=== PATIENT | female | born 1965 | race Caucasian/White ===

== ENCOUNTER 2018-06-03 19:51 | Emergency (ER) | payer BC, OTHER ==
--- NOTE | 2018-06-03 19:57 | ER Document Report ---
ED General - General Stated Complaint: POSSIBLE SYNCOPE EPISODE Time Seen by Provider: 06/03/18 19:56 Mode of Arrival: Medic Information source: Patient Notes: 52-year-old female with chronic back pain on Suboxone presents via EMS after a possible syncopal episode. Patient reports that she took a "piece" of Suboxone , 2 shots of rum and smoked marijuana earlier today. She states that she was outside of the liquor store when she became nauseous, dizzy and began vomiting. Her friend returned to the car and reports that the patient was unresponsive and cyanotic. EMS reports that upon their arrival the patient was alert, awake and not vomiting. Currently patient is complaining of dizziness. She denies any headache blurred vision, nausea, vomiting, chest pain, shortness of breath. Patient states that she recently started Suboxone after being on Percocet for many years for her chronic back pain. - HPI Onset: Just prior to arrival Onset/Duration: Sudden Quality of pain: No pain Associated symptoms: Nausea, Vomiting Exacerbated by: Denies Relieved by: Denies Similar symptoms previously: No Recently seen / treated by doctor: No - Related Data Allergies/Adverse Reactions: No Known Allergies Allergy (Verified 06/03/18 20:29) Past Medical History - General Information source: Patient, Friend, Emergency Med Personnel, [facility] Records - Social History Smoking Status: Current Every Day Smoker Cigarette use (# per day): Yes - 10 Smoking Education Provided: Yes Frequency of alcohol use: Occasional Drug Abuse: Marijuana, Other - Suboxone Lives with: Family Family History: Reviewed & Not Pertinent Patient has suicidal ideation: No Patient has homicidal ideation: No - Medical History Medical History: Other - Chronic back pain Review of Systems - Review of Systems Notes: REVIEW OF SYSTEMS: CONSTITUTIONAL : Denies fever, chills, or sweats. Denies recent illness. Denies weight loss, recent hospitalizations. EENT: Denies visual changes, eye pain. Denies nasal or sinus congestion or discharge. Denies sore throat, oral lesions, difficulty swallowing. CARDIOVASCULAR: Denies chest pain. Denies palpitations. Denies lower extremity edema. RESPIRATORY: Denies cough, cold, or chest congestion. Denies wheezing. GASTROINTESTINAL: Denies abdominal pain or distention. Denies diarrhea. Denies blood in vomitus, stools, or per rectum. Denies black, tarry stools. Denies constipation. GENITOURINARY: Denies difficulty urinating, painful urination, frequency, blood in urine, or vaginal discharge. MUSCULOSKELETAL: Denies back or neck pain or stiffness. Denies joint pain or swelling. SKIN: Denies rash, lesions or sores. HEMATOLOGIC : Denies easy bruising or bleeding. LYMPHATIC: Denies swollen glands. NEUROLOGICAL: Denies confusion or altered mental status. Denies passing out or loss of consciousness. Denies headache. Denies weakness or paralysis. Denies problems difficulty with ambulation, slurred speech. Denies sensory loss , numbness, or tingling. Denies seizures. PSYCHIATRIC: Denies anxiety or stress. Denies depression, suicidal ideation, or homicidal ideation. Denies visual or auditory hallucinations. Physical Exam - Vital signs Vitals: Temp 98.1 F 06/03/18 19:55 - Notes Notes: PHYSICAL EXAMINATION: GENERAL: Well-appearing, well-nourished and in no acute distress. HEAD: Atraumatic, normocephalic. EYES: Pupils equal round and reactive to light, extraocular movements intact, conjunctiva are normal. ENT: Nares patent, oropharynx clear without exudates. Moist mucous membranes. NECK: Normal range of motion, supple without lymphadenopathy LUNGS: Breath sounds clear to auscultation bilaterally and equal. No wheezes rales or rhonchi. HEART: Regular rate and rhythm without murmurs ABDOMEN: Soft, nontender, nondistended abdomen. No guarding, no rebound. No masses appreciated. Female : deferred Musculoskeletal: Normal range of motion, no pitting or edema. No cyanosis. NEUROLOGICAL: Cranial nerves grossly intact. Normal speech, normal gait. Normal sensory, motor exams. A and O 4 PSYCH: Normal mood, normal affect. SKIN: Warm, Dry, normal turgor, no rashes or lesions noted. Course - Re-evaluation Re-evalutation: Laboratory 06/03/18 06/03/18 06/03/18 20:20 20:20 21:40 WBC 10.5 RBC 3.89 Hgb 11.9 L Hct 35.3 L MCV 91 MCH 30.6 MCHC 33.7 RDW 14.7 H Plt Count 269 Seg Neutrophils % 57.5 Lymphocytes % 32.9 Monocytes % 6.5 Eosinophils % 2.3 Basophils % 0.8 Absolute Neutrophils 6.0 Absolute Lymphocytes 3.4 Absolute Monocytes 0.7 Absolute Eosinophils 0.2 Absolute Basophils 0.1 Sodium 144.4 Potassium 3.5 L Chloride 109 H Carbon Dioxide 25 Anion Gap 10 BUN 10 Creatinine 0.76 Est GFR ( Amer) > 60 Est GFR (Non-Af Amer) > 60 Glucose 98 Calcium 8.7 Urine Opiates Screen NEGATIVE Urine Methadone Screen NEGATIVE Ur Barbiturates Screen UNCONFIRMED POSITIVE Ur Phencyclidine Scrn NEGATIVE Ur Amphetamines Screen NEGATIVE U Benzodiazepines Scrn NEGATIVE Urine Cocaine Screen NEGATIVE U Marijuana (THC) Screen UNCONFIRMED POSITIVE Serum Alcohol 26 06/04/18 01:42 52-year-old female with chronic back pain on Suboxone presents via EMS after a possible syncopal episode. Patient reports that she took a "piece" of Suboxone , 2 shots of rum and smoked marijuana earlier today. She states that she was outside of the liquor store when she became nauseous, dizzy and began vomiting. Her friend returned to the car and reports that the patient was unresponsive and cyanotic. EMS reports that upon their arrival the patient was alert, awake and not vomiting. Currently patient is complaining of dizziness. She denies any headache blurred vision, nausea, vomiting, chest pain, shortness of breath. Patient states that she recently started Suboxone after being on Percocet for many years for her chronic back pain. Patient is mildly hypotensive, afebrile, not hypoxic. She does not appear toxic or dehydrated. Blood pressure improved after fluid bolus. Initially patient only complaining of dizziness during her ED course began to complain of a headache. Patient was given Toradol and Benadryl for this. Patient found to have a urine drug screen positive for barbiturates and marijuana. Serum alcohol elevated. I feel that the combination of Suboxone, marijuana, barbiturates and alcohol is likely the reason for the patient's nausea, vomiting, dizziness, headache and brief episode of altered mental status. Patient provided the opportunity to ask questions, and express concerns. Discharge instructions discussed. Patient is agreeable with discharge home. Return indications explained and discussed with the patient who displays understanding. Patient encouraged to return to the emergency department immediately with any concerns. - Vital Signs Vital signs: Temp Pulse Resp BP Pulse Ox 98.2 F 16 98/64 L 99 06/03/18 22:45 06/03/18 22:42 06/03/18 22:43 06/03/18 22:42 - Laboratory Result Diagrams: 06/03/18 20:20 06/03/18 20:20 Laboratory results interpreted by me: 06/03/18 06/03/18 20:20 20:20 Hgb 11.9 L Hct 35.3 L RDW 14.7 H Potassium 3.5 L Chloride 109 H - EKG Interpretation by Me EKG shows normal: Sinus rhythm Rate: Normal Rhythm: NSR When compared to previous EKG there are: Previous EKG unavailable Discharge - Discharge Clinical Impression: Marijuana use, Barbiturate use, Alcohol use, Polysubstance abuse, Transient altered mental status Headache Qualifiers: Headache type: unspecified Headache chronicity pattern: unspecified pattern Intractability: not intractable Qualified Code(s): R51 - Headache Nausea & vomiting Qualifiers: Vomiting type: unspecified Vomiting Intractability: non-intractable Qualified Code(s): R11.2 - Nausea with vomiting, unspecified Condition: Good Disposition: HOME, SELF-CARE Instructions: Acute Alcohol Intoxication ([facility]), Intravenous (IV) Fluids ([facility]), Vomiting ([facility]) Additional Instructions: There are multiple reasons that you had nausea an episode of altered mental status this includes alcohol use, marijuana use, barbiturate use, Suboxone use. I advised that you do not use all of the substances together in 1 day. Prescriptions: Ondansetron [Zofran Odt 4 mg Tablet] 1 tab PO Q4H PRN #15 tab.rapdis PRN Reason: For Nausea/Vomiting Forms: Return to Work Referrals: HOLDEN GORE NP [Primary Care Provider] - Follow up as needed
[2018-06-03] MEDS ORDERED: RINGERS SOLUTION,LACTATED 1,000 ML IV ONE ×2 (20:10→22:08)
[2018-06-03 20:34] LABS: ABSOLUTE BASOPHILS # (AUTO) 0.1 10^3/uL (0.0-0.2); ABSOLUTE EOSINOPHILS # (AUTO) 0.2 10^3/uL (0.0-0.6); ABSOLUTE LYMPHOCYTES (AUTO) 3.4 10^3/uL (0.5-4.7); ABSOLUTE MONOCYTES (AUTO) 0.7 10^3/uL (0.1-1.4); BASOPHILS % (AUTO) 0.8 % (0-2); EOSINOPHILS % (AUTO) 2.3 % (0-6); HEMATOCRIT 35.3 % (36.0-47.0); HEMOGLOBIN 11.9 g/dL (12.0-15.5); LYMPHOCYTES % (AUTO) 32.9 % (13-45); MEAN CORPUSCULAR HEMOGLOBIN 30.6 pg (27.0-33.4); MEAN CORPUSCULAR HGB CONC 33.7 g/dL (32.0-36.0); MEAN CORPUSCULAR VOLUME 91 fl (80-97); MONOCYTES % (AUTO) 6.5 % (3-13); PLATELET COUNT 269 10^3/uL (150-450); RED BLOOD COUNT 3.89 10^6/uL (3.72-5.28); RED CELL DISTRIBUTION WIDTH 14.7 % (11.5-14.0); SEGMENTED NEUTROPHILS % (AUTO) 57.5 % (42-78); TOTAL CELLS COUNTED % (AUTO) 100 %; WHITE BLOOD COUNT 10.5 10^3/uL (4.0-10.5)
[2018-06-03 20:50] LABS: ALCOHOL 26 mg/dL (NONE DETECTED); ANION GAP 10 (5-19); BLOOD UREA NITROGEN 10 mg/dL (7-20); CALCIUM 8.7 mg/dL (8.4-10.2); CARBON DIOXIDE 25 mmol/L (22-30); CHLORIDE 109 mmol/L (98-107); GLUCOSE 98 mg/dL (75-110); POTASSIUM 3.5 mmol/L (3.6-5.0); SODIUM 144.4 mmol/L (137-145)
[2018-06-03] MEDS ORDERED: KETOROLAC TROMETHAMINE INJ/PF 30 MG/1 ML SDV IV ONE (21:01)
[2018-06-03] MEDS ORDERED: DIPHENHYDRAMINE HCL 50 MG/ML VIAL IV ONE (22:08)
[2018-06-03 22:16] LABS: URINE AMPHETAMINES SCREEN NEGATIVE; URINE BARBITURATES SCREEN UNCONFIRMED POSITIVE; URINE BENZODIAZEPINES SCREEN NEGATIVE; URINE COCAINE SCREEN NEGATIVE; URINE MARIJUANA (THC) SCREEN UNCONFIRMED POSITIVE; URINE METHADONE SCREEN NEGATIVE; URINE PHENCYCLIDINE SCREEN NEGATIVE
[2018-06-03 22:51] VITALS: BP 98/64
--- NOTE | 2018-06-04 05:39 | EKG REPORT ---
SEVERITY:- NORMAL ECG - SINUS RHYTHM : Confirmed by: Tyron Jama MD 04-Jun-2018 05:38:59
== END 2018-06-03 22:51 | disposition home or self-care (01) ==
LOC: ER 19:51
DX: R41.82 Altered mental status, unspecified (principal); R51 Headache; R11.2 Nausea with vomiting, unspecified; F12.90 Cannabis use, unspecified, uncomplicated; F19.10 Other psychoactive substance abuse, uncomplicated; M54.9 Dorsalgia, unspecified; G89.29 Other chronic pain; R42 Dizziness and giddiness; Z72.89 Other problems related to lifestyle; Z79.899 Other long term (current) drug therapy; F17.210 Nicotine dependence, cigarettes, uncomplicated
CPT/HCPCS: 93005; 99284; 96361; 96374; 96375; 36415; 80307 ×2; 85025; 80048; 93010; J1200; J1885; J7120

== ENCOUNTER 2018-06-09 15:01 | Emergency (ER) | payer BC ==
--- NOTE | 2018-06-09 17:22 | ER Document Report ---
ED Medical Screen (RME) - General Chief Complaint: Probable Seizure Stated Complaint: POSSIBLE SYNCOPE Time Seen by Provider: 06/09/18 17:16 Notes: Patient has had 2 apparent seizures in the past week. She went to the beach today for couple of hours and then had a convulsion witnessed by a friend associated with vomiting with some of the vomitus coming through her nose. Patient had a similar episode, last Wednesday, 6 days ago, witnessed by the same friend. When the friend went into a store and came back to the vehicle where the patient was located she found the patient seizing and vomiting and that she had turned blue. EMS was called and brought the patient here where she was evaluated and discharged home after 6 hours here. Patient says she has been having some headaches. Not having fever. Not on any routine prescription medicines. Has had a couple of C-sections. No other past medical history of significance. Patient has never had seizures previously. No history of head injury in the past. TRAVEL OUTSIDE OF THE [place] IN LAST 30 DAYS: No - Related Data Allergies/Adverse Reactions: No Known Allergies Allergy (Verified 06/09/18 15:02) Past Medical History - Social History Chew tobacco use (# tins/day): No Frequency of alcohol use: Rare Drug Abuse: None, Marijuana Renal/ Medical History: Denies: Hx Peritoneal Dialysis Past Surgical History: Reports: Hx Section - x2 Physical Exam - Vital signs Vitals: Temp Pulse BP Pulse Ox 97.6 F 68 100/57 L 98 06/09/18 15:18 06/09/18 15:18 06/09/18 15:18 06/09/18 15:18 Course - Vital Signs Vital signs: Temp Pulse Resp BP Pulse Ox 97.6 F 68 100/57 L 98 06/09/18 15:18 06/09/18 15:18 06/09/18 15:18 06/09/18 15:18 Doctor's Discharge - Discharge Referrals: HOLDEN GORE NP [Primary Care Provider] - Follow up as needed
[2018-06-09 18:09] LABS: ABSOLUTE BASOPHILS # (AUTO) 0.2 10^3/uL (0.0-0.2); ABSOLUTE EOSINOPHILS # (AUTO) 0.2 10^3/uL (0.0-0.6); ABSOLUTE LYMPHOCYTES (AUTO) 2.5 10^3/uL (0.5-4.7); ABSOLUTE MONOCYTES (AUTO) 0.8 10^3/uL (0.1-1.4); ABSOLUTE NEUT (AUTO) 12.2 10^3/uL (1.7-8.2); BASOPHILS % (AUTO) 1.3 % (0-2); HEMATOCRIT 41.1 % (36.0-47.0); HEMOGLOBIN 13.4 g/dL (12.0-15.5); LYMPHOCYTES % (AUTO) 15.9 % (13-45); MEAN CORPUSCULAR HEMOGLOBIN 29.9 pg (27.0-33.4); MEAN CORPUSCULAR HGB CONC 32.7 g/dL (32.0-36.0); MEAN CORPUSCULAR VOLUME 92 fl (80-97); MONOCYTES % (AUTO) 5.2 % (3-13); PLATELET COUNT 351 10^3/uL (150-450); RED BLOOD COUNT 4.49 10^6/uL (3.72-5.28); RED CELL DISTRIBUTION WIDTH 14.8 % (11.5-14.0); SEGMENTED NEUTROPHILS % (AUTO) 76.6 % (42-78); TOTAL CELLS COUNTED % (AUTO) 100 %; WHITE BLOOD COUNT 15.9 10^3/uL (4.0-10.5)
--- NOTE | 2018-06-09 18:17 | RADIOLOGY REPORT (SQ) ---
EXAM DESCRIPTION: CT HEAD WITHOUT COMPLETED DATE/TIME: 06/09/2018 6:02 pm REASON FOR STUDY: 2 seizures in past week, never before COMPARISON: 02/04/2008 TECHNIQUE: Axial images acquired through the brain without intravenous contrast. Images reviewed wi th bone, brain and subdural windows. Additional sagittal and coronal reconstructions were generated. Images stored on PACS. All CT scanners at this facility use dose modulation, iterative reconstruction, and/or weight based d osing when appropriate to reduce radiation dose to as low as reasonably achievable (ALARA). [facility]: Dose Right [facility]: CareDose [facility]: Dose Right [facility]: Teradose 4D [facility]: Tideway RADIATION DOSE: CT Rad equipment meets quality standard of care and radiation dose reduction techniq ues were employed. CTDIvol: 53.2 mGy. DLP: 1097 mGy-cm. mGy. LIMITATIONS: None. FINDINGS: VENTRICLES: Normal size and contour. CEREBRUM: No masses. No hemorrhage. No midline shift. No evidence for acute infarction. Normal gra y/white matter differentiation. No areas of low density in the white matter. CEREBELLUM: No masses. No hemorrhage. No alteration of density. No evidence for acute infarction. EXTRAAXIAL SPACES: No fluid collections. No masses. ORBITS AND GLOBE: No intra- or extraconal masses. Normal contour of globe without masses. CALVARIUM: No fracture. PARANASAL SINUSES: No fluid or mucosal thickening. SOFT TISSUES: No mass or hematoma. OTHER: No other significant finding. IMPRESSION: NORMAL BRAIN CT WITHOUT CONTRAST. EVIDENCE OF ACUTE STROKE: NO. COMMENT: Quality ID # [id number]: Final reports with documentation of one or more dose reduction techniques (e.g., Automated exposure control, adjustment of the mA and/or kV according to patient size, use of iterative reconstruction technique) TECHNICAL DOCUMENTATION: JOB ID: [id number] [employer]- All Rights Reserved Reading location - IP/workstation name: [email or web address]
[2018-06-09 18:21] LABS: APPEARANCE,URINE CLEAR; BILIRUBIN,URINE NEGATIVE (NEGATIVE); COLOR,URINE AMBER; GLUCOSE, URINE NEGATIVE (NEGATIVE); KETONES,URINE NEGATIVE (NEGATIVE); LEUKOCYTE ESTERASE,URINE TRACE (NEGATIVE); NITRITE,URINE NEGATIVE (NEGATIVE); PROTEIN,URINE NEGATIVE (NEGATIVE); URINE SPECIFIC GRAVITY 1.013; UROBILINOGEN,URINE NEGATIVE mg/dL (<2.0)
[2018-06-09 18:30] LABS: ALANINE AMINOTRANSFERASE 16 U/L (9-52); ALBUMIN 4.3 g/dL (3.5-5.0); ALKALINE PHOSPHATASE 44 U/L (38-126); ANION GAP 9 (5-19); ASPARTATE AMINO TRANSFERASE 16 U/L (14-36); BILIRUBIN,DIRECT 0.2 mg/dL (0.0-0.4); BILIRUBIN,TOTAL 0.4 mg/dL (0.2-1.3); BLOOD UREA NITROGEN 12 mg/dL (7-20); CALCIUM 9.5 mg/dL (8.4-10.2); CARBON DIOXIDE 28 mmol/L (22-30); CHLORIDE 106 mmol/L (98-107); GLUCOSE 91 mg/dL (75-110); POTASSIUM 4.3 mmol/L (3.6-5.0); SODIUM 142.7 mmol/L (137-145); TOTAL PROTEIN 7.4 g/dL (6.3-8.2)
[2018-06-09 18:32] LABS: ALCOHOL < 10 mg/dL (NONE DETECTED)
[2018-06-09 18:34] LABS: URINE AMPHETAMINES SCREEN NEGATIVE; URINE BARBITURATES SCREEN NEGATIVE; URINE BENZODIAZEPINES SCREEN NEGATIVE; URINE COCAINE SCREEN NEGATIVE; URINE MARIJUANA (THC) SCREEN UNCONFIRMED POSITIVE; URINE METHADONE SCREEN NEGATIVE; URINE PHENCYCLIDINE SCREEN NEGATIVE
--- NOTE | 2018-06-09 18:36 | EKG REPORT ---
SEVERITY:- NORMAL ECG - SINUS RHYTHM : Confirmed by: Tyron Jama MD 09-Jun-2018 18:35:49
[2018-06-09 18:44] LABS: CREATINE KINASE MB < 0.22 ng/mL (<4.55); TROPONIN I < 0.012 ng/mL
[2018-06-09] MEDS ORDERED: NORMAL SALINE 1000 ML 1,000 ML IV ONE (19:32)
--- NOTE | 2018-06-09 19:37 | ER Document Report ---
ED General - General Chief Complaint: Probable Seizure Stated Complaint: POSSIBLE SYNCOPE Time Seen by Provider: 06/09/18 17:16 Notes: Patient is a 52-year-old female that comes to the emergency department for chief complaint of an episode that happened at home today where her friends saw her stopped responding, fall slightly to the chair, and she appeared to be convulsing with her eyes closed, and she appeared to vomit with some vomitus coming out of her nose. No cyanosis, this was a very short episode, patient states she remembers feeling weak and lightheaded beforehand and then waking up. Patient reportedly immediately responsive and oriented. Friend witnessed, daughter at bedside. Patient states she feels like she passed out. She reports feeling mildly weak and a mild headache now but otherwise denies any complaints. No head injury reported. Patient states that she was out of the beach for a couple of hours drinking soda before she went home and had the episode. She denies chest pain before or after, denies fever, shortness of breath, dizziness. She currently is taking no medications, used to be on pain control with Subutex, denies any alcohol today, denies any recreational drugs except for marijuana. No history of seizures. Only reported medical history is chronic back pain and 2 C-sections. TRAVEL OUTSIDE OF THE [place] IN LAST 30 DAYS: No - Related Data Allergies/Adverse Reactions: No Known Allergies Allergy (Verified 06/09/18 15:02) Past Medical History - General Information source: Patient - Social History Smoking Status: Current Every Day Smoker Chew tobacco use (# tins/day): No Frequency of alcohol use: Rare Drug Abuse: None, Marijuana Lives with: Family Family History: Reviewed & Not Pertinent Patient has suicidal ideation: No Patient has homicidal ideation: No Renal/ Medical History: Denies: Hx Peritoneal Dialysis Musculoskeletal Medical History: Reports Hx Arthritis, Reports Hx Musculoskeletal Deformity - Chronic back pain Past Surgical History: Reports: Hx Section - x2 - Immunizations Hx Diphtheria, Pertussis, Tetanus Vaccination: Yes Review of Systems - Review of Systems Constitutional: No symptoms reported EENT: No symptoms reported Cardiovascular: See HPI Respiratory: No symptoms reported Gastrointestinal: No symptoms reported Genitourinary: No symptoms reported Female Genitourinary: No symptoms reported Musculoskeletal: No symptoms reported Skin: No symptoms reported Hematologic/Lymphatic: No symptoms reported Neurological/Psychological: See HPI Physical Exam - Vital signs Vitals: Temp Pulse BP Pulse Ox 97.6 F 68 100/57 L 98 06/09/18 15:18 06/09/18 15:18 06/09/18 15:18 06/09/18 15:18 - Notes Notes: GENERAL: Alert, interacts well. No acute distress. HEAD: Normocephalic, atraumatic. EYES: Pupils equal, round, and reactive to light. Extraocular movements intact. ENT: Oral mucosa dry, unremarkable oral pharyngeal exam, ENT examination otherwise unremarkable. NECK: Full range of motion. Supple. Trachea midline. LUNGS: Clear to auscultation bilaterally, no wheezes, rales, or rhonchi. No respiratory distress. HEART: Regular rate and rhythm. No murmur ABDOMEN: Soft, non-tender. Non-distended. Bowel sounds present in all 4 quadrants. EXTREMITIES: Moves all 4 extremities spontaneously. No edema, normal radial and dorsalis pedis pulses bilaterally. No cyanosis. BACK: no cervical, thoracic, lumbar midline tenderness. No saddle anesthesia, normal distal neurovascular exam. NEUROLOGICAL: Alert and oriented x3. Normal speech. [cranial nerves II through XII grossly intact]. PSYCH: Normal affect, normal mood. SKIN: Warm, dry, normal turgor. No rashes or lesions noted. Course - Re-evaluation Re-evalutation: Patient was seen for similar episode about 1 week ago. It was felt at that time that it was a combination of alcohol, Subutex, and other medication she had taken and that she had passed out inside of having a seizure. Today's descriptions also sound like a syncopal episode, patient came in mildly hypotensive, she was given IV fluids. Patient did not have any postictal phase. She does not have a history of seizures. EKG shows sinus bradycardia at a rate of 56, normal QTC, IA interval is not short or long, no T-wave inversions or ST segment changes in consecutive leads, no significant change from prior. CAT scan of the head reviewed and unremarkable. CBC shows leukocytosis at 15,000 with elevation of neutrophils, no bandemia. No fever, soft abdomen, no current complaints, no concerning physical exam findings. Nonspecific finding. Chemistry unremarkable, troponin is negative, urine nonspecific, urine drug screen showing marijuana, alcohol negative. Second troponin is negative. Patient reevaluated bedside and asymptomatic. No headache, no complaints. Normal orthostatic vital signs. Patient is requesting to leave. Discussed syncope, causes, workup, and potential concerns. She did not have chest pain before she passed out, I have a lower suspicion of a dangerous arrhythmia, no tachycardia, shortness of breath, or chest pain suggesting pulmonary embolism, she did have a set up for dehydration and was drinking fluids after arrival before her laboratory workup was performed. Discussed cardiac follow-up, return precautions in detail. Patient and daughter at bedside state understanding and agreement with plan. - Vital Signs Vital signs: Temp Pulse Resp BP Pulse Ox 97.9 F 51 L 21 H 108/73 97 06/09/18 21:39 06/09/18 19:55 06/09/18 21:39 06/09/18 21:39 06/09/18 21:39 - Laboratory Result Diagrams: 06/09/18 17:37 06/09/18 17:37 Laboratory results interpreted by me: 06/09/18 06/09/18 17:37 17:37 WBC 15.9 H RDW 14.8 H Absolute Neutrophils 12.2 H Ur Leukocyte Esterase TRACE H Discharge - Discharge Clinical Impression: Episode of syncope Qualifiers: Syncope type: unspecified Qualified Code(s): R55 - Syncope and collapse Condition: Stable Disposition: HOME, SELF-CARE Additional Instructions: Your blood pressure was slightly low on evaluation, this is improved at this time. There may have been a dehydration component to your passing out today. Your evaluation does not show specific concerning abnormality, however because this is the second time this has happened recently, and because we do not know the exact cause of your passing out, I recommend close cardiology follow-up for additional evaluation and monitoring. Return if you develop any other concerning symptoms including difficulty breathing, dizziness, passing out again, chest pain, fever, severe headache, or any other concerning or worsening symptoms. See additional instructions below. Forms: Return to Work Referrals: DEEPA RIZVI MD [ACTIVE STAFF] - Follow up tomorrow
[2018-06-09] MEDS ORDERED: KETOROLAC TROMETHAMINE INJ/PF 30 MG/1 ML SDV IV ONE (20:15)
[2018-06-09] MEDS ORDERED: METOCLOPRAMIDE HCL INJ/PF 10 MG/2 ML SDV IV ONE (20:16)
[2018-06-09 21:42] VITALS: BP 108/73
== END 2018-06-09 21:42 | disposition home or self-care (01) ==
LOC: ER 15:01
DX: R55 Syncope and collapse (principal); R53.1 Weakness; R51 Headache; F17.200 Nicotine dependence, unspecified, uncomplicated; R00.1 Bradycardia, unspecified; D72.828 Other elevated white blood cell count
CPT/HCPCS: 93005; 99285; 96361; 96374; 96375; 36415; 82553; 80307 ×2; 83735; 85025; 80053; 81001; 84484; 70450; 93010; J1885; J2765; J7030

== ENCOUNTER 2018-10-12 09:42 | Emergency (ER) | payer BC ==
[2018-10-12] MEDS ORDERED: KETOROLAC TROMETHAMINE 60 MG/2 ML SDV IM ONE (10:31)
--- NOTE | 2018-10-12 10:31 | ER Document Report ---
HPI - HPI Time Seen by Provider: 10/12/18 10:09 Pain Level: 3 Notes: Patient is a 52-year-old female who presents to the emergency department with complaints of left scapular and left shoulder pain. Patient reports the pain has been ongoing for approximately 2 weeks. Patient reports she was seen at [facility] and was placed on Vicoprofen, steroids and Flexeril. Patient reports no relief of her symptoms after administration of these medications. Patient reports the pain starts approximately 2 inches from her spine and radiates to her left shoulder and down the left trapezius muscle. Patient reports she has an appointment with primary care on 10/18/18 but was unable to get in sooner. - REPRODUCTIVE Reproductive: DENIES: : - MUSCULOSKELETAL Musculoskeletal: REPORTS: Extremity pain - leck arm shoulder Past Medical History - General Information source: Patient - Social History Smoking Status: Current Every Day Smoker Chew tobacco use (# tins/day): No Frequency of alcohol use: None Drug Abuse: None Family History: Reviewed & Not Pertinent Patient has suicidal ideation: No Patient has homicidal ideation: No Renal/ Medical History: Denies: Hx Peritoneal Dialysis Musculoskeletal Medical History: Reports Hx Arthritis, Reports Hx Musculoskeletal Deformity - Chronic back pain Past Surgical History: Reports: Hx Section - x2 - Immunizations Hx Diphtheria, Pertussis, Tetanus Vaccination: Yes Vertical Provider Document - CONSTITUTIONAL Notes: PHYSICAL EXAMINATION: GENERAL: Well-appearing, well-nourished and in no acute distress. HEAD: Atraumatic, normocephalic. EYES: Pupils equal round extraocular movements intact, conjunctiva are normal. ENT: Nares patent NECK: Normal range of motion LUNGS: No respiratory distress Musculoskeletal: Tenderness to palpation to trapezius muscle on the left side. Normal motor and sensation. No vertebral tenderness. NEUROLOGICAL: Normal speech, normal gait. PSYCH: Normal mood, normal affect. SKIN: Warm, Dry, normal turgor, no rashes or lesions noted. - INFECTION CONTROL TRAVEL OUTSIDE OF THE [place] IN LAST 30 DAYS: No Course - Re-evaluation Re-evalutation: 10/12/18 10:44 Patient's examination is consistent with trapezius muscle strain. Will start patient on a different muscle relaxer as the Flexeril is not helping her. We will also start her on Voltaren gel. Patient encouraged to follow-up with primary care so that she can possibly be started in physical therapy if not improving. Patient verbalizes understanding and agreement with this plan. - Vital Signs Vital signs: Temp Pulse Resp BP Pulse Ox 97.7 F 76 14 119/78 98 10/12/18 10:04 10/12/18 10:04 10/12/18 10:04 10/12/18 10:04 10/12/18 10:04 Discharge - Discharge Clinical Impression: Trapezius muscle strain Qualifiers: Encounter type: initial encounter Laterality: left Qualified Code(s): S46.812A - Strain of other muscles, fascia and tendons at shoulder and upper arm level, left arm, initial encounter Condition: Stable Disposition: HOME, SELF-CARE Additional Instructions: Muscle Strain You have strained a muscle -- torn the fibers within the muscle. This often occurs with strenuous exertion, or during an injury that suddenly stretches the muscle. The seriousness of a strain varies. Some strains heal within days, others cause problems for months. X-rays cannot show a muscle strain. X-rays are taken only if symptoms suggest that a fracture could be present. The usual treatment of a muscle strain is rest and ice packs. Sometimes, a sling, splint, or crutches may be necessary to rest the muscle. The muscle can be used again once pain subsides. Severe strains require a special exercise and stretching program to prevent permanent stiffness and disability. Your doctor will advise you if this will be necessary. Call the doctor immediately if pain or swelling becomes severe, or if numbness or discoloration develop. Please stop taking the Flexeril and start taking the Robaxin which is a different type of muscle relaxer. Use the Voltaren gel to the area 4 times daily. I would try to get a sooner appointment with primary care, I have enclosed a couple of phone numbers that you may want to try. Ultimately if this is not get better you may need to consider physical therapy and/or an MRI of the area. Prescriptions: Diclofenac Sodium [Voltaren] 100 gm TP QID #100 gel..gm. Methocarbamol [Robaxin 750 mg Tablet] 750 mg PO Q4 #40 tablet Referrals: [facility] [Provider Group] - Follow up as needed EPHRAIM HERNANDEZ MD [ACTIVE STAFF] - Follow up as needed
[2018-10-12 12:46] VITALS: BP 103/74
== END 2018-10-12 11:05 | disposition home or self-care (01) ==
LOC: ER 09:42
DX: S29.012A Strain of muscle and tendon of back wall of thorax, initial encounter (principal); X58.XXXA Exposure to other specified factors, initial encounter; M25.512 Pain in left shoulder; F17.200 Nicotine dependence, unspecified, uncomplicated
CPT/HCPCS: 99283; 96372; J1885

== ENCOUNTER 2018-12-09 20:02 | Emergency (ER) | payer SELFPAY ==
[2018-12-09] MEDS ORDERED: NORMAL SALINE 1000 ML 1,000 ML IV ONE (20:40)
[2018-12-09 20:47] LABS: HEMATOCRIT 36.3 % (36.0-47.0); HEMOGLOBIN 12.5 g/dL (12.0-15.5); MEAN CORPUSCULAR HEMOGLOBIN 31.1 pg (27.0-33.4); MEAN CORPUSCULAR HGB CONC 34.5 g/dL (32.0-36.0); MEAN CORPUSCULAR VOLUME 90 fl (80-97); PLATELET COUNT 257 10^3/uL (150-450); RED BLOOD COUNT 4.03 10^6/uL (3.72-5.28); WHITE BLOOD COUNT 9.9 10^3/uL (4.0-10.5)
--- NOTE | 2018-12-09 20:51 | EKG REPORT ---
SEVERITY:- NORMAL ECG - SINUS RHYTHM : Confirmed by: Porsche Acosta MD 09-Dec-2018 20:50:50
[2018-12-09 21:12] LABS: ANION GAP 6 (5-19); BLOOD UREA NITROGEN 10 mg/dL (7-20); CALCIUM 9.1 mg/dL (8.4-10.2); CARBON DIOXIDE 29 mmol/L (22-30); CHLORIDE 105 mmol/L (98-107); GLUCOSE 70 mg/dL (75-110); POTASSIUM 3.6 mmol/L (3.6-5.0); SODIUM 140.3 mmol/L (137-145)
[2018-12-09 21:14] LABS: ALCOHOL < 10 mg/dL (NONE DETECTED)
--- NOTE | 2018-12-09 21:16 | ER Document Report ---
ED General - General Chief Complaint: Fainting Stated Complaint: WEAKNESS Time Seen by Provider: 12/09/18 20:08 Notes: Patient is a 53-year-old female with a past medical history of polysubstance abuse, presents the emergency department after an episode of syncope. Patient reports that she was at a friend's house, had smoked marijuana but not done any other drugs. States that she began to feel lightheaded. States that she went to lay down, continue to feel lightheaded so she decided to walk back out to the kitchen. States when she got in the kitchen she sat down again and felt extremely lightheaded. When she went from a sitting to standing position she states that that is the last thing she remembers. Apparently she woke up lying in bed next to her friend who was standing her face. They reported that she had lost bladder continence, had a head and shaking during the episode which had lasted for 1-2 minutes. There was no postictal phase. Patient states this is very similar to previous visits that she has had to the emergency department under similar circumstances. She has not yet followed up with her primary care doctor. She states that she overall feels well at the time of my evaluation other than still feeling somewhat lightheaded. Denies any chest pain, shortness of breath, focal weakness, numbness, headache or confusion. Nothing seems to improve or worsen her symptoms or the frequency of these episodes. TRAVEL OUTSIDE OF THE [place] IN LAST 30 DAYS: No - Related Data Allergies/Adverse Reactions: latex Allergy (Verified 10/12/18 09:44) Past Medical History - General Information source: Patient - Social History Smoking Status: Current Every Day Smoker Chew tobacco use (# tins/day): No Frequency of alcohol use: Rare Drug Abuse: Marijuana Lives with: Friend Family History: Reviewed & Not Pertinent Patient has suicidal ideation: No Patient has homicidal ideation: No Renal/ Medical History: Denies: Hx Peritoneal Dialysis Musculoskeletal Medical History: Reports Hx Arthritis, Reports Hx Musculoskele julián Deformity - Chronic back pain Past Surgical History: Reports: Hx Section - x2 - Immunizations Hx Diphtheria, Pertussis, Tetanus Vaccination: Yes Review of Systems - Review of Systems Notes: Constitutional: Negative for fever. HENT: Negative for sore throat. Eyes: Negative for visual changes. Cardiovascular: Negative for chest pain. Positive for syncope and lightheadedness Respiratory: Negative for shortness of breath. Gastrointestinal: Negative for abdominal pain, vomiting or diarrhea. Genitourinary: Negative for dysuria. Musculoskeletal: Negative for back pain. Skin: Negative for rash. Neurological: Negative for headaches, weakness or numbness. 10 point ROS negative except as marked above and in HPI. Physical Exam - Vital signs Vitals: Pulse Ox 95 12/09/18 20:13 Interpretation: Hypotensive Notes: PHYSICAL EXAMINATION: GENERAL: Well-appearing, well-nourished and in no acute distress. HEAD: Atraumatic, normocephalic. EYES: Pupils equal round and reactive to light, extraocular movements intact, sclera anicteric, conjunctiva are normal. ENT: nares patent, oropharynx clear without exudates. Moderately dry mucous membranes. NECK: Normal range of motion, supple without lymphadenopathy LUNGS: Breath sounds clear to auscultation bilaterally and equal. No wheezes rales or rhonchi. HEART: Regular rate and rhythm without murmurs ABDOMEN: Soft, nontender, normoactive bowel sounds. No guarding, no rebound. No masses appreciated. EXTREMITIES: Normal range of motion, no pitting or edema. No cyanosis. NEUROLOGICAL: Face symmetric. Tongue protrudes midline. Extraocular motions intact. Pupils are 2 mm and equally reactive. Normal speech, normal gait. 5 out of 5 strength in both the distal and proximal upper and lower extremities bilaterally. Sensation is grossly intact throughout. Finger to nose testing normal. Pronator drift normal. PSYCH: Normal mood, normal affect. SKIN: Warm, Dry, normal turgor, no rashes or lesions noted. Course - Re-evaluation Re-evalutation: 12/09/18 21:11 Presentation of syncope of unclear etiology although appears to be likely orthostatic in nature given that she reports lightheadedness and when she went from a position of sitting to standing she did lose consciousness. Patient moderately hypotensive on presentation which did improve with fluid resuscitation, alert, without focal neurologic deficits at time of arrival. Denies syncope was during exertion. No preceding symptoms of palpitations, chest pain, or shortness of breath. Patient asymptomatic at time of arrival. EKG is without evidence of HCOM, right heart strain, ST changes to suggest ischemia, prolong QTc, delta wave, epsilon wave, or Brugada syndrome. Patient denies any family history of sudden cardiac , personal history of of structural heart disease. Patient denies any symptoms to suggest an acute PE, DC, TAD, SAH, or acute GI bleed as the etiology of their syncope today. Pattern is not consistent with seizure rather suspect the patient has had tonic-clonic jerking during the episode of syncope as there was no postictal phase similar to the previous visits to the emergency department. Moreover her prodromal symptoms as well as overall history is consistent with syncope as opposed to seizures. On exam, no murmurs to suggest critical aortic stenosis as possible etiology. Based on overall clinical history, exam findings, vitals, and patients appearance, I feel it is safe for patient to be discharged home at this time with close outpatient follow-up and strict return precautions. I have advised the patient on the need for cardiology follow-up given the recurrent nature of her symptoms. Patient is in agreement with this plan, has verbalized indications for return to ED, and questions have been answered. - Vital Signs Vital signs: Temp Pulse Resp BP Pulse Ox 20 88/61 L 98 12/09/18 20:51 12/09/18 20:51 12/09/18 20:51 - Laboratory Result Diagrams: 12/09/18 20:25 12/09/18 20:25 Laboratory results interpreted by me: 12/09/18 20:15 POC Glucose 131 H - EKG Interpretation by Me Additional EKG results interpreted by me: 12/09/18 21:13 Sinus rhythm, rate 76. No ST elevations or depressions. QTC is 432. Discharge - Discharge Clinical Impression: Orthostasis Syncope Qualifiers: Syncope type: unspecified Qualified Code(s): R55 - Syncope and collapse Low blood pressure Qualifiers: Hypotension type: unspecified hypotension type Qualified Code(s): I95.9 - Hypo tension, unspecified Condition: Good Disposition: HOME, SELF-CARE Additional Instructions: You were seen today after an episode of passing out. Your EKG here is normal. At this time, we do not feel that your episode of passing out was from any life- threatening cause. This is likely due to low blood pressure. Your symptoms and history are not consistent with a seizure. Please drink plenty of fluids over the next several days. Return to emergency department if you have any further episodes of syncope, headache, weakness, numbness, chest pain, or shortness of breath. Please follow up closely with your primary care physician. I also advised to follow-up with cardiology as you have had recurrent episodes of pa ssing out similar to today. Please contact the senior linux systems administrator to whom I have referred you within the next several days. Referrals: DEEPA RIZVI MD [ACTIVE STAFF] - Follow up tomorrow
[2018-12-09 22:18] VITALS: BP 106/71
== END 2018-12-09 22:18 | disposition home or self-care (01) ==
LOC: ER 20:02
DX: I95.1 Orthostatic hypotension (principal); I95.9 Hypotension, unspecified; R53.1 Weakness; F19.10 Other psychoactive substance abuse, uncomplicated; R42 Dizziness and giddiness; R32 Unspecified urinary incontinence; W19.XXXA Unspecified fall, initial encounter; Y92.000 Kitchen of unspecified non-institutional (private) residence as the place of occurrence of the external cause; F17.200 Nicotine dependence, unspecified, uncomplicated
CPT/HCPCS: 93005; 99284; 96360; 36415; 82962; 80307; 85027; 80048; 84484; 93010; J7030